=== PATIENT | male | born 1930 | race Caucasian/White ===

== ENCOUNTER 2016-10-18 11:01 | Emergency (ER) | payer OTHER ==
[2016-10-18 11:10] VITALS: TEMP 97.5
--- NOTE | 2016-10-18 11:14 | EDPHY ---
H & P Time Seen by Provider: 10/18/16 11:14 HPI/ROS: CHIEF COMPLAINT: Rapid heart rate and low blood pressure HISTORY OF PRESENT ILLNESS: Patient was in a follow-up appointment at his primary care provider's office when he was noted to have a blood pressure of 70/ 6 and heart rate of 162. Kristina Trujillo sent here for evaluation. Patient has no medical complaints. REVIEW OF SYSTEMS: Eye: no change in vision ENT: no sore throat Cardiac: no chest pain or syncope Pulmonary: no cough or SOB Abdomen: no vomiting, diarrhea, abdominal pain Musculoskeletal: no back pain Skin: no rash Neuro: no headache. He said he was a little bit dizzy earlier today but currently is not. No vertigo Constitutional: no fever : no urinary symptoms A comprehensive 10 point review of systems is otherwise negative aside from elements mentioned in the history of present illness. PAST MEDICAL HISTORY: Left total hip arthroplasty. Stroke in 1999, history of TIA. Rheumatoid arthritis, hypertension. Chronically hard of hearing Social history: Here with son. General Appearance: Alert and conversant, cooperative. Eyes: No scleral icterus. ENT, Mouth: Normal mucous membranes. Respiratory: Normal respiratory effort, breath sounds equal, lungs are clear to auscultation. Cardiovascular: Regular rate and rhythm. Tachycardic. Gastrointestinal: Abdomen is soft and non tender. Neurological: Alert and oriented x3. Normally conversant. Face symmetric, normal movement and sensation in all extremities. Skin: Warm and dry, no rashes. Musculoskeletal: No peripheral edema and no joint swelling. Psychiatric: Not agitated. Emergency Department course/MDM: Initial blood pressure 82 systolic, patient was emergently cardioverted with IV adenosine 6 mg for SVT with hypotension. Patient does not have ischemic symptoms. Has normal mental status. I-STAT creatinine noted at 1.7, he was 1.5 on 07/10/2016. 1149: Patient noted to be in recurrent SVT. His medications include atenolol. Plan for 5 mg IV metoprolol, patient converted spontaneously and now heart rate is 70. Hold off on adenosine unless he returns to SVT. 1231: Recurrent SVT at 1:50 a.m., additional 5 mg IV metoprolol. Heart rate at 1240 is back to 70, he will be given his usual daily oral atenolol at this time 50 mg. 1310: Heart rate stable at this time at 70. He gets his oral atenolol at this time. Plan to discharge with the son if he remains in sinus rhythm. 1355: Still in sinus rhythm, stable for discharge. He does not present with symptoms suggesting this was an ischemic event. Smoking Status: Former smoker Constitutional: Initial Vital Signs Temperature (C) 36.4 C 10/18/16 11:06 Heart Rate 160 H 10/18/16 11:06 Respiratory Rate 18 10/18/16 11:06 Blood Pressure 82/65 L 10/18/16 11:06 O2 Sat (%) 96 10/18/16 11:06 O2 Delivery Mode Room Air O2 (L/minute) 2 Allergies/Adverse Reactions: tetanus immune globulin Allergy (Verified 07/07/16 12:55) HEADACHES,UNABLE TO GET UP FOR DAYS Home Medications: Medication Instructions Recorded Atenolol [Tenormin 50 mg (*)] 50 mg PO DAILY 02/05/14 Calcium Carbonate/Vitamin D3 1 each PO BID 02/05/14 [Calcium 600-Vit D3 200 Tablet] Folic Acid [Folic Acid 1 MG (*)] 1 mg PO DAILY 02/05/14 Methotrexate Sodium [Trexall] 10 mg PO [place]@09 02/05/14 Multivitamins [Multivitamin (*)] 1 each PO DAILY 02/05/14 Omeprazole [Prilosec 20 mg] 20 mg PO DAILY 02/05/14 Fluticasone Nasal [Flonase Nasal 1 sprays [place] DAILY 07/07/16 [place]] Acetaminophen [Tylenol ES 500 mg 1,000 mg PO Q8 #0 tab 07/10/16 (*)] Calcium Carb W/Vit D [Calcium Carb 500 mg PO BID #0 tab 07/10/16 W/Vit D 500/200 (*)] Etanercept [Enbrel] 0 mg SQ Q5D 07/10/16 Hydrocodone/APAP 5/325 [[place] 1 - 2 tab PO Q3HRS PRN #0 tab 07/10/16 5/325 (*)] Lactulose [Cephulac 20 gm/30 ml 20 gm PO TID PRN #0 ml 07/10/16 oral soln (*)] Magnesium Hydroxide [Milk of 30 ml PO DAILY PRN #0 udcup 07/10/16 Magnesia (*)] Polyethylene Glycol 3350 [Miralax 17 gm PO DAILY #0 pkt 07/10/16 17 gm (*)] Sennosides/Docusate Sodium 1 - 2 tab PO BID #0 tab 07/10/16 [Senokot-S] Tapentadol HCl [Nucynta 50 MG (*)] 50 mg PO Q4HRS PRN #0 tab 07/10/16 oxyCODONE IR [Oxycodone Ir (*)] 5 mg PO Q3HRS PRN #0 tab 07/10/16 Enoxaparin [Lovenox 40 MG (*)] 40 mg SC DAILY 21 Days 07/11/16 Medical Decision Making - Diagnostics EKG Interpretation: 12-lead EKG interpreted by me; official reading is in trace master. My interpretation is SVT at 160 with repolarization abnormality. 2nd EKG at 11:28 a.m.:12-lead EKG interpreted by me; official reading is in trace master. My interpretation is sinus rhythm at rate of 71 with low frontal voltage. Differential Diagnosis: Differential diagnosis considered for narrow complex tachycardia including but not limited to various causes of sinus tachycardia, SVT, atrial flutter and atrial fibrillation. Critical Care Time: Critical care time spent by me, Dr. Houser, exclusively with the care of this patient was 45 minutes, exclusive of PA or IMPLEMENTATION ANALYST time and exclusive of separate procedures. The organ system at risk was cardiovascular with SVT and hypotension with blood pressure in the 80s, and I ordered IV adenosine and IV metoprolol, monitoring and testing of electrolytes, initial repeated evaluations ; to stabilize the patient and prevent worsening of the patient's condition. - Data Points Laboratory Results: 10/18/16 11:18 POC Hgb 15.6 gm/dL (14.5-17.3) POC Hct 46 % (42.8-50.6) POC Sodium 141 mEq/L (134-144) POC Potassium 3.9 mEq/L (3.3-5.0) POC Chloride 101 mEq/L (96-108) POC BUN 23 mg/dL (7-23) POC Creatinine 1.7 H mg/dL (0.8-1.5) POC Glucose 110 H mg/dL (70-100) Medications Given: Discontinued Medications Adenosine (Adenosine) 6 mg IVP EDNOW ONE Stop: 10/18/16 11:25 Last Admin: 10/18/16 11:24 Dose: 6 mg Adenosine (Adenosine) 6 mg IVP EDNOW ONE Stop: 10/18/16 11:50 Last Admin: 10/18/16 11:55 Dose: Not Given Atenolol (Tenormin) 50 mg PO EDNOW ONE Stop: 10/18/16 12:39 Last Admin: 10/18/16 13:08 Dose: 50 mg Metoprolol Tartrate (Lopressor Injection) 5 mg IVP EDNOW ONE Stop: 10/18/16 11:51 Last Admin: 10/18/16 11:54 Dose: 5 mg Metoprolol Tartrate (Lopressor Injection) 5 mg IVP EDNOW ONE Stop: 10/18/16 12:34 Last Admin: 10/18/16 12:37 Dose: 5 mg Point of Care Test Results: 10/18/16 11:18 POC Sodium 141 POC Potassium 3.9 POC Chloride 101 POC BUN 23 POC Creatinine 1.7 H POC Glucose 110 H Departure - Departure Disposition: Home, Routine, Self-Care Clinical Impression: Supraventricular tachycardia Condition: Good Instructions: Supraventricular Tachycardia (ED) Referrals: Evonne Trujillo PA [Primary Care Provider] - As per Instructions
--- NOTE | 2016-10-18 11:20 | CPEKG ---
Heart Rate: 159 RR Interval: 377 QRSD Interval: 74 QT Interval: 320 QTC Interval: 521 P [place]: 0 QRS [place]: 19 T Wave [place]: 73 EKG Severity - ABNORMAL ECG - EKG Impression: SUPRAVENTRICULAR TACHYCARDIA EKG Impression: LOW VOLTAGE IN FRONTAL LEADS EKG Impression: REPOLARIZATION ABNORMALITY, PROB RATE RELATED Electronically Signed By: Jh Houser 18-Oct-2016 13:13:58
[2016-10-18] MEDS ORDERED: ADENOSINE 6 MG/2 ML VIAL IVP ONE ×2 (11:24→11:49)
--- NOTE | 2016-10-18 11:30 | CPEKG ---
Heart Rate: 71 RR Interval: 845 P-R Interval: 208 QRSD Interval: 80 QT Interval: 396 QTC Interval: 431 P [place]: 67 QRS [place]: -15 T Wave [place]: 50 EKG Severity - OTHERWISE NORMAL ECG - EKG Impression: SINUS RHYTHM EKG Impression: BORDERLINE LEFT AXIS DEVIATION EKG Impression: LOW VOLTAGE IN FRONTAL LEADS Electronically Signed By: Jh Houser 18-Oct-2016 13:13:52
[2016-10-18] MEDS ORDERED: METOPROLOL TARTRATE 5 MG/5 ML INJ ONE (11:49)
[2016-10-18] MEDS ORDERED: METOPROLOL TARTRATE 5 MG/5 ML INJ IVP ONE ×2 (11:50→12:33)
[2016-10-18] MEDS ORDERED: ATENOLOL 50 MG TAB PO ONE (12:38)
[2016-10-18 14:05] VITALS: BP 129/61; PULSE 64; RESP 18; O2SAT 96
== END 2016-10-18 14:15 | disposition home or self-care (01) ==
DX: I47.1 Supraventricular tachycardia (principal); I10 Essential (primary) hypertension; Z86.73 Personal history of transient ischemic attack (TIA), and cerebral infarction without residual deficits; Z87.891 Personal history of nicotine dependence
CPT/HCPCS: 82947-QW; 96374

== ENCOUNTER → 2016-11-10 | Outpatient (CLI) | payer OTHER | LOC: BHFA 13:30 | PROVIDERS: ATTEND Internal Medicine Cardiovascular Disease | DX: I47.1 Supraventricular tachycardia (principal); I10 Essential (primary) hypertension; G45.9 Transient cerebral ischemic attack, unspecified ==

== ENCOUNTER → 2016-12-27 | Outpatient (CLI) | payer OTHER | LOC: FIMAGING 11:14 | PROVIDERS: ATTEND Physician Assistant Medical | DX: N40.0 Benign prostatic hyperplasia without lower urinary tract symptoms (principal); M43.16 Spondylolisthesis, lumbar region ==

== ENCOUNTER → 2017-01-19 | Outpatient (CLI) | payer OTHER ==
[~2017-01-19] MED LIST: GADOBUTROL 10 ML VIAL IVP ONE
== END ==
LOC: FIMAGING 08:42
PROVIDERS: ATTEND Psychiatry & Neurology Neurology
DX: H53.9 Unspecified visual disturbance (principal); G45.9 Transient cerebral ischemic attack, unspecified; R47.01 Aphasia; R20.0 Anesthesia of skin
CPT/HCPCS: 70544; 70549; 70551; A9585

== ENCOUNTER 2017-04-19 13:26 | Emergency (ER) | payer OTHER ==
--- NOTE | 2017-04-19 13:34 | EDPHY ---
H & P Smoking Status: Former smoker Time Seen by Provider: 04/19/17 13:30 HPI/ROS: HPI Speech disturbance, right-sided facial droop, stroke alert. 87-year-old male by ambulance from [facility]. Patient was talking to another resident at [facility], witnessed sudden-onset expressive a aphasia, dysphagia and right-sided facial droop. Onset 1:00 p.m.. EMS reports on arrival facial droop had resolved. EMS reports and route to hospital speech disturbance is improving. ROS: Constitutional: No fever, no chills. No weakness. Eyes: No discharge. No changes in vision. ENT: No sore throat. No nasal congestion or rhinorrhea. Respiratory: No cough. No shortness of breath. Cardiac: No chest pain, no palpitations. Gastrointestinal: No abdominal pain, no vomiting, no diarrhea. Genitourinary: No hematuria. No dysuria or increased frequency with urination. Musculoskeletal: No back pain. No neck pain. No myalgias or arthralgias. Skin: No rashes. Neurological: No headache. As above. Past medical history: CVA. Social history: Resident [facility]. Here by himself currently. Physical Exam: General Appearance: Alert, no distress. This patient is responding to questions appropriately and in full sentences. This patient appears well- hydrated and well-nourished. Eyes: Pupils equal and round and reactive no pallor or injection. No lid edema , erythema or injection. ENT, Mouth: Mucous membranes are moist. The pharyngeal tissues are unremarkable. No edema or swelling. No asymmetry suggestive of abscess. No erythema or exudates. No tongue lacerations or abrasions. Respiratory: There are no retractions, lungs are clear to auscultation with good air movement bilaterally. Cardiovascular: Regular rate and rhythm. No murmur. Gastrointestinal: Abdomen is soft and nontender, no masses, bowel sounds normal. No focal tenderness at McBurney's point. No Barros sign. Neurological: Motor sensory function is grossly intact. Cranial nerves are normal. Skin: Warm and dry, no rashes. Musculoskeletal: Neck is supple and nontender. Extremities are symmetrical. All joints range without pain or impingement. Psychiatric: No agitation. No depression. Database: EKG: EKG time is 1:56 p.m.; EKG shows a narrow complex normal sinus rhythm with a ventricular rate of 62. Low voltage frontal leads. Borderline left axis deviation. The [place], QRS, QT intervals are within normal limits. There are no ST -T wave changes indicative of ischemic or injury pattern. No evidence of right heart strain. Interpreted by me. Imaging: CT brain without contrast: No acute pathology. Results were discussed with staff radiologist. MRI of brain without contrast: Procedures: Emergency department course: Vital signs reviewed. Blood sugar per EMS is 110. Patient has shown significant improvement in neurologic function since onset of symptoms at 1:00 p.m.. Facial droop has resolved. Speech disturbance is resolving. Patient downgraded from stroke alert. Likely TIA. I evaluated the patient at the door. Brief neurologic Assessment was done and the patient was sent for noncontrast CT scan of his head. Medical records reviewed. MRA of neck 01/19/2017, negative for dissection or significant stenosis. 1:55 p.m., patient re-evaluated. No change in neurologic status. Patient communicating appropriately. No expressive or receptive aphasia. Son at the bedside. He verifies the patient is currently at his baseline neurologic function. 2:45 p.m., patient awaiting MRI of the brain. Blood work reviewed %period% creatinine 1.7 is patient's baseline. Repeat neurologic Assessment nonfocal. Discussed results of CT and blood work with the patient's son. The patient's son tells me that the patient has had multiple incident such as today in the past. Plan will be to send the patient home if MRI unremarkable. The patient and son endorse this plan. 3:00 p.m., care turned over to Dr. Isha Bowles. MRI pending. Differential Diagnosis: The differential diagnosis on this patient includes but is not limited to CVA, TIA, hypoglycemia. This represents a partial list of diagnoses considered. These considerations are based on history, physical exam, past history, reassessment and diagnostic testing. (Mady Villarreal) Constitutional: Initial Vital Signs Temperature (C) 36.7 C 04/19/17 13:50 Heart Rate 66 04/19/17 13:50 Respiratory Rate 16 04/19/17 13:50 Blood Pressure 143/71 H 04/19/17 13:50 O2 Sat (%) 99 04/19/17 13:50 O2 Delivery Mode Room Air Allergies/Adverse Reactions: tetanus immune globulin Allergy (Verified 07/07/16 12:55) HEADACHES,UNABLE TO GET UP FOR DAYS Home Medications: Medication Instructions Recorded Atenolol [Tenormin 50 mg (*)] 50 mg PO DAILY 02/05/14 Calcium Carbonate/Vitamin D3 1 each PO BID 02/05/14 [Calcium 600-Vit D3 200 Tablet] Folic Acid [Folic Acid 1 MG (*)] 1 mg PO DAILY 02/05/14 Methotrexate Sodium [Trexall] 10 mg PO [place]AMORRO@09 02/05/14 Multivitamins [Multivitamin (*)] 1 each PO DAILY 02/05/14 Omeprazole [Prilosec 20 mg] 20 mg PO DAILY 02/05/14 Fluticasone Nasal [Flonase Nasal 1 sprays EACHNARE DAILY 07/07/16 [place]] Acetaminophen [Tylenol ES 500 mg 1,000 mg PO Q8 #0 tab 07/10/16 (*)] Calcium Carb W/Vit D [Calcium Carb 500 mg PO BID #0 tab 07/10/16 W/Vit D 500/200 (*)] Etanercept [Enbrel] 0 mg SQ Q5D 07/10/16 Hydrocodone/APAP 5/325 [[place] 1 - 2 tab PO Q3HRS PRN #0 tab 07/10/16 5/325 (*)] Lactulose [Cephulac 20 gm/30 ml 20 gm PO TID PRN #0 ml 07/10/16 oral soln (*)] Magnesium Hydroxide [Milk of 30 ml PO DAILY PRN #0 udcup 07/10/16 Magnesia (*)] Polyethylene Glycol 3350 [Miralax 17 gm PO DAILY #0 pkt 07/10/16 17 gm (*)] Sennosides/Docusate Sodium 1 - 2 tab PO BID #0 tab 07/10/16 [Senokot-S] Tapentadol HCl [Nucynta 50 MG (*)] 50 mg PO Q4HRS PRN #0 tab 07/10/16 oxyCODONE IR [Oxycodone Ir (*)] 5 mg PO Q3HRS PRN #0 tab 07/10/16 Enoxaparin [Lovenox 40 MG (*)] 40 mg SC DAILY 21 Days 07/11/16 Medical Decision Making Other Provider: I assumed care of this patient from Dr. Villarreal at 3:00 p.m.. MRI was pending at that time. The MRI was reported to me as being without acute findings. Atrophy and white matter changes are noted. Please see Dr. Lemon's final report. I discussed these findings with both the patient and his son. They are both comfortable with the patient returning home. Reportedly he has these episodes, presumed to be TIAs, frequently, at least once monthly. There was nothing different about today's episode. He takes a daily aspirin. He is not interested in further intervention or treatment. All of his symptoms subsided shortly after the episode began and have not returned. He is discharged home. (Isha Bowles) - Data Points Laboratory Results: Laboratory Results 04/19/17 13:45 04/19/17 13:45 Medications Given: Discontinued Medications Sodium Chloride (Ns) 500 mls @ 0 mls/hr IV ONCE ONE; Wide Open PRN Reason: Protocol Stop: 04/19/17 13:49 Last Admin: 04/19/17 14:09 Dose: 500 mls Departure - Departure Disposition: Home, Routine, Self-Care Clinical Impression: Transient cerebral ischemia Qualifiers: Transient cerebral ischemia type: other Qualified Code(s): G45.8 - Other transient cerebral ischemic attacks and related syndromes Condition: Good Instructions: Transient Ischemic Attack (ED) Additional Instructions: Read and follow provided instructions. Follow-up with your primary care physician or neurologist tomorrow or Sunday for re-evaluation. Take medication as prescribed. Return to the emergency department for return of symptoms or other serious concerns. Referrals: Evonne Trujillo PA [Physician Lead Case Manager] - As per Instructions
[2017-04-19] MEDS ORDERED: NS 500 ML IV ONE (13:48)
[2017-04-19 13:54] VITALS: RESP 16
[2017-04-19 13:54] LABS: % IMMATURE GRANULYOCYTES 0.5 % (0.0-1.1); ABSOLUTE IMMATURE GRANULOCYTES 0.03 10^3/uL (0.00-0.10); ADD DIFF? NO; ADD MORPH? NO; ADD SCAN? YES; ATYPICAL LYMPHOCYTE FLAG 0 (0-99); FRAGMENT RBC FLAG 0 (0-99); HEMATOCRIT 37.9 % (40.0-51.0); HEMOGLOBIN 12.6 g/dL (13.7-17.5); LEFT SHIFT FLG 0 (0-99); LIPEMIA HEMOLYSIS FLAG 80 (0-99); MEAN CELL HEMOGLOBIN 31.7 pg (27.9-34.1); MEAN CELL HEMOGLOBIN CONCENTR. 33.2 g/dL (32.4-36.7); MEAN CELL VOLUME 95.5 fL (81.5-99.8); MEAN PLATELET VOLUME 9.7 fL (8.7-11.7); PLATELET CLUMPS FLAG 0 (0-99); PLATELET COUNT 179 10^3/uL (150-400); RED BLOOD CELL COUNT 3.97 10^6/uL (4.40-6.38); RED CELL DISTRIBUTION WIDTH 15.6 % (11.5-15.2)
--- NOTE | 2017-04-19 14:00 | CPEKG ---
Heart Rate: 62 RR Interval: 968 P-R Interval: 204 QRSD Interval: 88 QT Interval: 424 QTC Interval: 431 P [place]: 63 QRS [place]: -22 T Wave [place]: 53 EKG Severity - OTHERWISE NORMAL ECG - EKG Impression: SINUS RHYTHM EKG Impression: BORDERLINE LEFT AXIS DEVIATION EKG Impression: LOW VOLTAGE IN FRONTAL LEADS Electronically Signed By: Mady Villarreal 19-Apr-2017 15:10:16
[2017-04-19 14:13] LABS: APTT 30.2 SEC (23.0-38.0); INR 1.11 (0.83-1.16); PROTIME(PATIENT) 14.2 SEC (12.0-15.0)
[2017-04-19 14:15] LABS: CALCIUM 9.6 mg/dL (8.5-10.4); CARBON DIOXIDE 23 mEq/l (22-31); CHLORIDE 107 mEq/L (97-110); CREATININE 1.7 mg/dL (0.7-1.3); GLOMERULAR FILTRATION RATE 38; GLUCOSE 100 mg/dL (70-100); SODIUM 142 mEq/L (134-144)
[2017-04-19 14:23] LABS: SCAN POSITIVE
[2017-04-19 14:27] LABS: ANION GAP 12 mEq/L (8-16); POTASSIUM 4.3 mEq/L (3.5-5.2)
[2017-04-19 14:35] LABS: PLATELET ESTIMATE ADEQUATE (ADEQ)
[2017-04-19 16:17] VITALS: BP 124/62; PULSE 70; TEMP 98.2; O2SAT 100
== END 2017-04-19 16:26 | disposition home or self-care (01) ==
LOC: EDUNIT#
DX: G45.8 Other transient cerebral ischemic attacks and related syndromes (principal); E86.9 Volume depletion, unspecified
CPT/HCPCS: 82947-QW

== ENCOUNTER 2019-02-15 14:44 | Inpatient (IN) | payer OTHER ==
--- NOTE | 2019-02-15 14:51 | EDPHY ---
H & P Time Seen by Provider: 02/15/19 14:50 HPI/ROS: HPI Stroke alert. Speech difficulty. Altered mental status. 89-year-old male by ambulance from [facility]. Last seen by a staff member 12 noon at [facility] and described as normal. Responding to questions appropriately. Alert and oriented. Sudden-onset expressive and receptive aphasia at 12 noon. Presents to the emergency department as a stroke alert. Prior history of TIA. Not on anticoagulant and antiplatelet medications. Further history not obtainable at this time. ROS: Unable to obtain secondary to above. Past medical history: Chronic kidney disease, constipation, hypertension, TIA, rheumatoid arthritis on immune inhibitors. Social history: His son is on his way to the emergency department currently. He presents from [facility]. Nonsmoker. No alcohol. Physical Exam: General Appearance: Alert, making intermittent nonsensical sounds. Not responding to questioning. Dysarthric very limited speech. This patient appears well-hydrated and well-nourished. Head: Normocephalic atraumatic. Eyes: Pupils equal and round no pallor or injection. No lid edema, erythema or injection. ENT, Mouth: Mucous membranes are moist. The pharyngeal tissues are unremarkable. No edema or swelling. No asymmetry suggestive of abscess. No erythema or exudates. No tongue lacerations or abrasions. No tongue lacerations or abrasions. Respiratory: There are no retractions, lungs are clear to auscultation with good air movement bilaterally. Cardiovascular: Regular rate and rhythm. No murmur. Gastrointestinal: Abdomen is soft and without apparent tenderness, no masses, bowel sounds normal. No obvious focal tenderness at McBurney's point. No Barros sign. Neurological: Motor sensory function is grossly intact. Cranial nerves are grossly normal. Expressive and receptive aphasia. With lab voice will focus but not respond appropriately. Skin: Warm and dry, no rashes. Musculoskeletal: Neck is supple and without obvious tenderness. Extremities are symmetrical. All joints range without apparent pain or impingement. No apparent tenderness on palpation of the long bones in the bilateral upper and bilateral lower extremities. Psychiatric: Agitation. Database: EKG: EKG time is 3:29 p.m.; EKG shows a narrow complex normal sinus rhythm with a ventricular rate of 86. Low voltage noted in the extremity leads. The IN, QRS, QT intervals are within normal limits. There are no ST-T wave changes indicative of ischemic or injury pattern. No evidence of right heart strain. Interpreted by me. Imaging: CT head without contrast: Age-related changes only. Otherwise negative. Results were discussed with staff radiologist Dr. Tevin Bennett. MRI brain without contrast: Images in adequate for interpretation. Discussed with staff radiologist Dr. Byron Harper. Carotid artery Doppler ultrasounds: No hemodynamically significant stenosis of the bilateral carotid arteries. Vertebral arteries unremarkable. Results discussed with staff radiologist Dr. Byron Harper. Procedures: Emergency department course: Initial evaluation was performed in the hallway immediately on arrival by myself. Patient was then cleared for noncontrast CT head and sent to the CT suite. Patient returned from CT at approximately 2:55 p.m.. No change in neurologic status as noted above. [facility] paged. [facility] [facility]ist, Dr. Mason Hernandez assessing the patient at 3:00 p.m.. 3:10 p.m., the patient's son is currently in the room. He states that he was with his father before 11:00 a.m. this morning and his father states he was acting as he is currently. He reports that he thinks his father may have fallen but when he found him in his room he was standing with his pants down, making nonsensical sounds and not responding to questions. The patient is currently being evaluated by [facility]. Patient seems to be intermittently trying to gag versus sneeze. He is handling his secretions. Upper airway sounds are clear. He will be given 12.5 mg of IV Phenergan and 4 mg of IV Zofran. 3:20 p.m., [facility] has finished their assessment of this patient. The patient is not a tPA candidate secondary to time of onset of symptoms greater than 4 hr. [facility] feels that this may not be a stroke. Neurologist does however recommend getting a CT angiogram of the head neck. This was ordered. We will consult with them if there are any significant abnormalities on this study. 3:25 p.m., spoke with the on-call hospitalist, Dr. Patience Means. Case discussed in detail with her. She tentatively accepts this patient for admission to the hospitalist service. 3:30 p.m., secondary to continued agitation and need for more imaging as noted above the patient was given 2 mg of IV Ativan. 3:40 p.m., patient's creatinine is 1.6. Discussed this with staff radiologist Dr. Tevin Bennett. CT angio of head neck canceled. Will obtain noncontrast MRI of brain and Doppler ultrasounds of carotids. 4:35 p.m., the patient did not tolerate MRI. He was given 2 doses of Haldol of 5 mg of piece and still became very agitated when the machine started to make noise. He also received a total of 2 mg of IV Ativan as noted above. He was return to the emergency department. His repeat neurologic Assessment is unchanged other than him being appropriately sedated at this point. 4:45 p.m., spoke with on-call neurologist Dr. Byron Russell. The case was discussed in detail with him. I did discuss obtaining an LP. However, this procedure is going to be very difficult given the patient's level of agitation. Likely would require deep sedation and possible intubation. We both feel that the patient's presentation is more consistent with a thrombotic CVA. Because of this and the risks associated with doing the LP procedure as outlined , we will not perform this procedure in the emergency department. We did obtain blood cultures. The patient has remained afebrile while in the emergency department. He does not have a leukocytosis. However, the patient is on rituximab and methotrexate and therefore is likely immune compromised. I discussed my conversation with Dr. Russell with the admitting hospitalist Dr. Patience Means. We will initiate treatment for possible meningitis in the emergency department. If reassessment of the patient on the floor indicates a clear CVA etiology of his presentation this treatment can be stopped. The patient was given initial doses of antibiotics and IV Decadron in the emergency department. His remaining emergency department course under my care has been uneventful. He was admitted to the hospitalist service, step-down unit in stable condition. Differential Diagnosis: The differential diagnosis on this patient includes but is not limited to acute thrombotic CVA. Toxic metabolic problem, hemorrhagic CVA unlikely. This represents a partial list of diagnoses considered. These considerations are based on history, physical exam, past history, reassessment and diagnostic testing. Smoking Status: Former smoker Constitutional: Initial Vital Signs Temperature (C) 36.3 C 02/15/19 14:44 Heart Rate 87 02/15/19 14:44 Respiratory Rate 20 02/15/19 14:44 Blood Pressure 174/92 H 02/15/19 14:44 O2 Sat (%) 99 02/15/19 14:44 O2 Delivery Mode Nasal Cannula O2 (L/minute) 2 Allergies/Adverse Reactions: tetanus immune globulin Allergy (Verified 02/15/19 15:32) HEADACHES,UNABLE TO GET UP FOR DAYS Home Medications: Medication Instructions Recorded Atenolol [Tenormin 50 mg (*)] 50 mg PO DAILY 02/05/14 Folic Acid [Folic Acid 1 MG (*)] 1 mg PO DAILY 02/05/14 Methotrexate Sodium [Trexall] 10 mg PO CHAMORRO@09 02/05/14 Multivitamins [Multivitamin (*)] 1 each PO DAILY 02/05/14 Omeprazole [Prilosec 20 mg] 20 mg PO DAILY 02/05/14 Fluticasone Nasal [Flonase Nasal 1 sprays EACHNARE DAILY PRN 07/07/16 [place]] Calcium Carb W/Vit D [Calcium Carb 500 mg PO BID #0 tab 07/10/16 W/Vit D 500/200 (*)] Acetaminophen [Tylenol ES 500 mg 1,000 mg PO Q8 PRN 02/15/19 (*)] Medical Decision Making Critical Care Time: I spent a total of 42 minutes of critical care time in obtaining history, performing a physical exam, bedside monitoring of interventions, collecting and interpreting tests and discussion with consultants but not including time spent performing procedures. - Data Points Laboratory Results: Laboratory Results 02/15/19 14:50 02/15/19 14:50 Medications Given: Aspirin (Aspirin Rectal) 300 mg IN DAILY FIFI Stop: 08/14/19 19:27 Last Admin: 02/16/19 08:42 Dose: 300 mg Enoxaparin Sodium (Lovenox) 30 mg SC DAILY FIFI Stop: 08/15/19 08:59 Last Admin: 02/16/19 11:59 Dose: Not Given Sodium Chloride (Ns) 1,000 mls @ 75 mls/hr IV CONT FIFI Stop: 08/14/19 18:14 Last Admin: 02/16/19 08:43 Dose: 1,000 mls Discontinued Medications Dexamethasone (Decadron Injection) 10 mg IVP EDNOW ONE Stop: 02/15/19 17:06 Last Admin: 02/15/19 17:16 Dose: 10 mg Haloperidol Lactate (Haldol Injection) 10 mg IVP EDNOW ONE Stop: 02/15/19 16:16 Last Admin: 02/15/19 17:11 Dose: 10 mg Haloperidol Lactate (Haldol Injection) 1 - 2 mg IVP Q6HRS PRN PRN Reason: Agitation Stop: 08/14/19 18:11 Last Admin: 02/16/19 06:48 Dose: 2 mg Ampicillin Sodium 2 gm/ Sodium (Chloride) 100 mls @ 200 mls/hr IV EDNOW ONE PRN Reason: Protocol Stop: 02/15/19 17:35 Last Admin: 02/15/19 18:28 Dose: 100 mls Ceftriaxone Sodium 2 gm/ (Sodium Chloride) 50 mls @ 100 mls/hr IV EDNOW ONE PRN Reason: Protocol Stop: 02/15/19 17:36 Last Admin: 02/15/19 19:48 Dose: 50 mls Vancomycin HCl 1.5 gm/ (Dextrose) 250 mls @ 166.67 mls/hr IV EDNOW ONE PRN Reason: Protocol Stop: 02/15/19 18:36 Last Admin: 02/15/19 20:27 Dose: Not Given Vancomycin HCl 1.5 gm/ Sodium (Chloride) 250 mls @ 166.67 mls/hr IV EDNOW ONE PRN Reason: Protocol Stop: 02/15/19 19:29 Last Admin: 02/15/19 20:26 Dose: 250 mls Ampicillin Sodium 2 gm/ Sodium (Chloride) 100 mls @ 200 mls/hr IV Q6HRS FIFI PRN Reason: Protocol Stop: 03/18/19 00:00 Last Admin: 02/16/19 13:37 Dose: Not Given Ceftriaxone Sodium 2 gm/ (Sodium Chloride) 50 mls @ 100 mls/hr IV Q12 FIFI PRN Reason: Protocol Stop: 03/18/19 08:59 Last Admin: 02/16/19 08:42 Dose: 50 mls Lorazepam (Ativan Injection) 2 mg IVP EDNOW ONE Stop: 02/15/19 15:26 Last Admin: 02/15/19 15:30 Dose: 2 mg Lorazepam (Ativan Injection) 0.5 - 1 mg IVP Q8HRS PRN PRN Reason: Anxiety, Unable to Take PO Stop: 08/14/19 18:02 Last Admin: 02/16/19 03:59 Dose: 1 mg Ondansetron HCl (Zofran) 4 mg IVP EDNOW ONE Stop: 02/15/19 15:26 Last Admin: 02/15/19 15:30 Dose: 4 mg Promethazine HCl (Phenergan) 12.5 mg IVP ONCE ONE Stop: 02/15/19 15:26 Last Admin: 02/15/19 15:30 Dose: 12.5 mg Point of Care Test Results: Chemistry 02/15/19 14:53 POC Sodium 139 mEq/L mEq/L (135-145) POC Potassium 4.2 mEq/L mEq/L (3.3-5.0) POC Chloride 104 mEq/L mEq/L (97-110) POC Total CO2 22 mEq/L mEq/L (22-31) POC BUN 19 mg/dL mg/dL (7-23) POC Creatinine 1.6 mg/dL H mg/dL (0.7-1.3) POC Glucose 110 mg/dL H mg/dL (70-100) ISTAT H&H 02/15/19 14:53 POC Hgb 13.9 gm/dL gm/dL (13.7-17.5) POC Hct 41 % % (40-51) Departure - Departure Disposition: [facility] Inpatient Acute Clinical Impression: Combined receptive and expressive aphasia, Altered mental status, Chronic renal insufficiency
[2019-02-15 15:00] LABS: PLATELET COUNT 195 10^3/uL (150-400)
[2019-02-15 15:08] LABS: INR 0.96 (0.83-1.16); PROTIME(PATIENT) 12.4 SEC (12.0-15.0)
[2019-02-15] MEDS ORDERED: ONDANSETRON 4 MG/2 ML VIAL ONE (15:10)
[2019-02-15] MEDS ORDERED: PROMETHAZINE HCL 25 MG/ML INJ ONE (15:10)
[2019-02-15] MEDS ORDERED: LORazepam 2 MG/ML INJ ONE (15:15)
[2019-02-15] MEDS ORDERED: PROMETHAZINE HCL 25 MG/ML INJ IVP ONE (15:25)
[2019-02-15] MEDS ORDERED: LORazepam 2 MG/ML INJ IVP ONE (15:25)
[2019-02-15] MEDS ORDERED: ONDANSETRON 4 MG/2 ML VIAL IVP ONE (15:25)
[2019-02-15] MEDS ORDERED: IOPAMIDOL (ISOVUE 370) 100 ML BTL IV ONE (15:27)
[2019-02-15] MEDS ORDERED: HALOPERIDOL LACT 5 MG/ML INJ ONE ×2 (15:51→16:25)
[2019-02-15] MEDS ORDERED: HALOPERIDOL LACT 5 MG/ML INJ IVP ONE (16:15)
[2019-02-15] MEDS ORDERED: DEXAMETHASONE 10 MG/ML VIAL IVP ONE (17:05)
[2019-02-15] MEDS ORDERED: AMPICILLIN SODIUM 2 GM in NS 100 ML IV ONE (17:06)
[2019-02-15] MEDS ORDERED: VANCOMYCIN 1.5 GM in D5W 250 ML IV ONE (17:07)
[2019-02-15] MEDS ORDERED: ONDANSETRON 4 MG/2 ML VIAL IVP PRN (18:03)
[2019-02-15] MEDS ORDERED: ACETAMINOPHEN 650 MG SUPP PR PRN (18:03)
[2019-02-15] MEDS ORDERED: HYDROmorphONE/DILAUDID 1 MG/ML INJ IVP PRN (18:03)
[2019-02-15] MEDS ORDERED: ACETAMINOPHEN 325 MG TAB PO PRN (18:03)
[2019-02-15] MEDS ORDERED: PROMETHAZINE HCL 25 MG/ML INJ IVP PRN (18:03)
[2019-02-15] MEDS ORDERED: ONDANSETRON DISINTEGRATING 4 MG TAB PO PRN (18:03)
[2019-02-15] MEDS ORDERED: HALOPERIDOL LACT 5 MG/ML INJ IVP PRN (18:12)
[2019-02-15] MEDS: NS 1,000 ML IV SCH (18:28)
--- NOTE | 2019-02-15 18:29 | CPEKG ---
Test Reason : OPEN Blood Pressure : / mmHG Vent. Rate : 086 BPM Atrial Rate : 086 BPM P-R Int : 215 ms QRS Dur : 086 ms QT Int : 406 ms P-R-T Axes : 061 -13 058 degrees QTc Int : 486 ms Sinus rhythm Borderline prolonged ID interval Low voltage, extremity leads Borderline prolonged QT interval Confirmed by Mady Villarreal ([id number]) on 02/15/2019 6:28:43 PM Referred By: Mady Villarreal Confirmed By:Mady Villarreal
--- NOTE | 2019-02-15 19:14 | PDGENHP ---
History and Physical - Chief Complaint sudden onset confusion/aphasia - History of Present Illness Patient is an 89 yo M with PMH of RA, dementia, TIA currently residing at [facility] and brought in after being noted to be confused with associated aphasia at around noon today. Son stated that when he saw him earlier this morning, around 11, he was also confused however so last known normal unclear. At the time of my evaluation patient is spontaneously moving all 4 extremities and appears to be equally strong throughout but is unable to follow commands and is unable to answer questions, he does not open his eyes for me. He is intermittently groaning and slightly combative with staff. History is obtained entirely by chart review and discussion with ER doctor. History Information - Allergies/Home Medication List Allergies/Adverse Reactions: tetanus immune globulin Allergy (Verified 02/15/19 15:32) HEADACHES,UNABLE TO GET UP FOR DAYS Home Medications: Atenolol [Tenormin 50 mg (*)] 50 mg PO DAILY 02/05/14 [Last Taken 07/06/16] Calcium Carbonate/Vitamin D3 [Calcium 600-Vit D3 200 Tablet] 1 each PO BID 02/05 [Last Taken 07/06/16] Folic Acid [Folic Acid 1 MG (*)] 1 mg PO DAILY 02/05/14 [Last Taken 07/06/16] Methotrexate Sodium [Trexall] 10 mg PO CHAMORRO@09 02/05/14 [Last Taken 07/02/16] Multivitamins [Multivitamin (*)] 1 each PO DAILY 02/05/14 [Last Taken 12/16/14] Omeprazole [Prilosec 20 mg] 20 mg PO DAILY 02/05/14 [Last Taken 07/06/16] Fluticasone Nasal [Flonase Nasal [place]] 1 sprays EACHNARE DAILY 07/07/16 [Last Taken Unknown] riTUXimab 02/15/19 [Last Taken Unknown] I have personally reviewed and updated: family history, medical history, social history, surgical history - Past Medical History arthritis (rheumatoid), cancer (NHL), COPD, dementia, hypertension, hyperlipidemia, TIA Additional medical history: interstitial lung disease. encephalopathy in the past in setting of infection - Surgical History Reports: hernia repair Additional surgical history: ankle surgery. cataract. hip - Family History Positive for: non-pertinent - Social History Smoking Status: Former smoker Alcohol Use: Rarely Drug Use: None Additional social history: lives in [facility], has a son in town involved in his care Review of Systems Review of Systems: unobtainable due to patients mental status Physical Exam Physical Exam: Temp Pulse Resp BP Pulse Ox 37.6 C 91 16 180/80 H 99 02/15/19 18:06 02/15/19 18:06 02/15/19 18:06 02/15/19 18:06 02/15/19 18:06 O2 (L/minute) 2 Constitutional: appears nourished, uncomfortable Eyes: PERRL Ears, Nose, Mouth, Throat: poor dentition, dry mucous membranes Cardiovascular: regular rate and rhythym, no murmur, rub, or gallop, No edema Respiratory: no respiratory distress, no rales or rhonchi Gastrointestinal: normoactive bowel sounds, No guarding, No rebound Genitourinary: no bladder tenderness Skin: warm, normal color Musculoskeletal: full muscle strength Neurologic: other (not responding to questions or following commands, moves all 4), No AAOx3 Psychiatric: encephalopathic, agitated Lab Data & Imaging Review 02/15/19 14:50 02/15/19 14:50 WBC 5.61 10^3/uL (3.80-9.50) 02/15/19 14:50 RBC 3.87 10^6/uL (4.40-6.38) L 02/15/19 14:50 Hgb 13.3 g/dL (13.7-17.5) L 02/15/19 14:50 POC Hgb 13.9 gm/dL (13.7-17.5) 02/15/19 14:53 Hct 38.5 % (40.0-51.0) L 02/15/19 14:50 POC Hct 41 % (40-51) 02/15/19 14:53 MCV 99.5 fL (81.5-99.8) 02/15/19 14:50 MCH 34.4 pg (27.9-34.1) H 02/15/19 14:50 MCHC 34.5 g/dL (32.4-36.7) 02/15/19 14:50 RDW 15.8 % (11.5-15.2) H 02/15/19 14:50 Plt Count 195 10^3/uL (150-400) 02/15/19 14:50 MPV 9.4 fL (8.7-11.7) 02/15/19 14:50 Neut % (Auto) Not Reported 02/15/19 14:50 Lymph % (Auto) Not Reported 02/15/19 14:50 Bell % (Auto) Not Reported 02/15/19 14:50 Eos % (Auto) Not Reported 02/15/19 14:50 Baso % (Auto) Not Reported 02/15/19 14:50 Nucleat RBC Rel Count Not Reported 02/15/19 14:50 Absolute Neuts (auto) Not Reported 02/15/19 14:50 Absolute Lymphs (auto) Not Reported 02/15/19 14:50 Absolute Monos (auto) Not Reported 02/15/19 14:50 Absolute Eos (auto) Not Reported 02/15/19 14:50 Absolute Basos (auto) Not Reported 02/15/19 14:50 Absolute Nucleated RBC Not Reported 02/15/19 14:50 Immature Gran % Not Reported 02/15/19 14:50 Seg Neutrophils % 57.2 % 02/15/19 14:50 Band Neutrophils % 5.1 % 02/15/19 14:50 Lymphocytes % 15.3 % 02/15/19 14:50 Monocytes % 15.3 % 02/15/19 14:50 Eosinophils % 4.1 % 02/15/19 14:50 Basophils % 1.0 % 02/15/19 14:50 Metamyelocytes % 2.0 % 02/15/19 14:50 Myelocytes % 0.0 % 02/15/19 14:50 Promyelocytes % 0.0 % 02/15/19 14:50 Blast Cells % 0.0 % 02/15/19 14:50 Immature Gran # Not Reported 02/15/19 14:50 Absolute Seg Neuts 3.21 10^3/uL (1.70-6.50) 02/15/19 14:50 Absolute Band Neuts 0.29 10^3/uL (0.00-0.70) 02/15/19 14:50 Absolute Lymphocytes 0.86 10^3/uL (1.00-3.00) L 02/15/19 14:50 Absolute Monocytes 0.86 10^3/uL (0.30-0.80) H 02/15/19 14:50 Absolute Eosinophils 0.23 10^3/uL (0.03-0.40) 02/15/19 14:50 Absolute Basophils 0.06 10^3/uL (0.02-0.10) 02/15/19 14:50 Absolute Metamyelocyte 0.11 10^3/mL (0.00-0.00) H 02/15/19 14:50 Absolute Myelocytes 0.00 10^3/mL (0.00-0.00) 02/15/19 14:50 Absolute Promyelocytes 0.00 10^3/uL (0.00-0.00) 02/15/19 14:50 Absolute Plasma Cells 0.00 10^3/uL (0.00-0.00) 02/15/19 14:50 Nucleated RBCs 0 /100 WBC (0-0) 02/15/19 14:50 Absolute Blast Cells 0.00 10^3/uL (0.00-0.00) 02/15/19 14:50 Plasma Cells % 0.0 % 02/15/19 14:50 Platelet Estimate ADEQUATE (ADEQ) 02/15/19 14:50 Microcytic Cells 1+ H 02/15/19 14:50 Oval Macrocytes 1+ H 02/15/19 14:50 PT 12.4 SEC (12.0-15.0) 02/15/19 14:50 INR 0.96 (0.83-1.16) 02/15/19 14:50 POC Sodium 139 mEq/L (135-145) 02/15/19 14:53 Sodium 136 mEq/L (135-145) 02/15/19 14:50 POC Potassium 4.2 mEq/L (3.3-5.0) 02/15/19 14:53 Potassium 4.4 mEq/L (3.5-5.2) 02/15/19 14:50 POC Chloride 104 mEq/L (97-110) 02/15/19 14:53 Chloride 102 mEq/L (97-110) 02/15/19 14:50 Carbon Dioxide 22 mEq/l (22-31) 02/15/19 14:50 POC Total CO2 22 mEq/L (22-31) 02/15/19 14:53 Anion Gap 12 mEq/L (6-14) 02/15/19 14:50 POC BUN 19 mg/dL (7-23) 02/15/19 14:53 BUN 20 mg/dL (7-23) 02/15/19 14:50 Creatinine 1.5 mg/dL (0.7-1.3) H 02/15/19 14:50 POC Creatinine 1.6 mg/dL (0.7-1.3) H 02/15/19 14:53 Estimated GFR 44 02/15/19 14:50 Glucose 106 mg/dL (70-100) H 02/15/19 14:50 POC Glucose 110 mg/dL (70-100) H 02/15/19 14:53 Calcium 9.8 mg/dL (8.5-10.4) 02/15/19 14:50 POC Troponin I 0.01 ng/mL (0.00-0.08) 02/15/19 16:20 Visualized and Interpreted imaging results: Yes Interpretation: head CT: atrophy, white matter changes, nothing acute. carotid US: no significant stenosis Visualized and Interpreted EKG results: Yes EKG Interpretation: Positive for: normal sinsus rhythm Assessment & Plan Assessment: Altered mental status (Acute) CVA (cerebral vascular accident) (Acute) 89 yo M with PMH of RA and chronic immune suppression as well as prior TIA and mild dementia presenting with encephalopathy and aphasia # metabolic encephalopathy: patient brought in as a stroke alert with new onset expressive and receptive aphasia noted at home, here with signs of continued global encephalopathy likely exacerbated by sedation given for attempted MRI ( given 10mg IV haldol, 4mg IV ativan and 12.5mg IV phenergan in ER). Seen by [facility] neurology who recommended head/neck CTA which was deferred given ckd, and then brain MRI which was unobtainable due to agitation. Consider meningitis particularly given immune suppressed state but LP unobtainable as well. Started empiric tx for meningitis for now with ctx/ampicillin and vanco and ordered LP for am, plan for MRI in am as well if able. Eval for other source of infection pending including UA and chest XR ordered. # expressive/receptive aphasia and ? CVA: as above, w/u planned was not able to be obtained thus far, head CT w/o bleed, carotid US w/o stenosis, neurology consulted for am. Plan for brain MRI, echo in am. Asa ordered rectal for now, NPO # RA: with associated ILD and rather severe sxs in the past, followed by Dr. Vega and treated with rituximab and intermittent prednisone # dementia: reportedly mild and hx of encephalopathy in the past in the setting of infection, independent living and manages ADLs usually # HTN, uncontrolled: will allow for mild HTN for now given concerns for ischemic stroke but goal closer to sbp 170 which he has been holding for the most part # CKD: baseline creatinine of 1.6 which is where he is typically, needs CTA as above which was deferred given both agitation and elevated creatinine, will give IVF overnight in anticipation of CTA in am # IP status, high risk requiring step down unit monitoring, in addition to evaluation for admission an additional > 35 min critical care time spent in evaluation of labs/imaging and consultation with specialist and ER doctor Patient new to my care. Old records reviewed and summarized as above. Care plan reviewed with ER doctor as above.
[2019-02-15] MEDS: VANCOMYCIN 1.5 GM in NS 250 ML IV ONE ×2 (19:30→20:26)
[2019-02-15] MEDS: LORazepam 2 MG/ML INJ IVP PRN (20:12)
[2019-02-16] MEDS: AMPICILLIN SODIUM 2 GM in NS 100 ML IV SCH ×3 (01:01→13:37)
[2019-02-16] MEDS: LORazepam 2 MG/ML INJ IVP PRN (03:59)
[2019-02-16 05:25] LABS: PLATELET COUNT 136 10^3/uL (150-400)
[2019-02-16] MEDS: ASPIRIN RECTAL 300 MG SUPP PR SCH (08:42)
[2019-02-16] MEDS: NS 1,000 ML IV SCH (08:43)
[2019-02-16] MEDS ORDERED: ENOXAPARIN 30 MG/0.3 ML SYR SC SCH (09:00)
[2019-02-16] MEDS ORDERED: ASPIRIN RECTAL 300 MG SUPP PR SCH (09:00)
--- NOTE | 2019-02-16 09:54 | PDMN ---
Medical Necessity Medical necessity: [facility] Neurology: 89 yo presents w/ AMS w/ associated aphasia. Eval reveals metabolic encephalopathy poss r/t acute CVA. Some difficulties getting definitive dx tests given pt agitation. Consider meningitis w/ immunosuppression. Neuro consult, IV antibx to cover for meningitis. IVF. IP status as pt high risk requiring SDU monitoring and further dx testing. Meets [facility] IP criteria for [facility] w/ new onset severe neuro finding requiring IP care indicated by aphasia. Anticipate>2MN for monitoring/ tx of the above. Hx RA on chronic immune suppression, TIA, mild dementia.
--- NOTE | 2019-02-16 10:24 | NEUROPROG ---
Assessment: [id number] - Neurology Consult: - CC: Confusion - HPI: 02/16/19: Pt with PMHx of RA on chronic immunosuppression, non hodgkin's lymphoma , COPD, mild dementia, TIA, and prior encephalopathy in setting of infection developed acute confusion and speech disturbance on 02/15/19. Presented to [facility] ER where head CT and carotid U/S showed no acute changes. Pt given 10 mg IV haldol and 4 mg IV ativan to control sedation so he could have a brain MRI or spinal but he was too agitated in the ER so he was admitted for further evaluation. CTA head/neck not able to be obtained due to elevated creatinine. Pt placed on broad spectrum antibiotics to cover possibility of meningitis and rectal aspirin added to cover chance pt had a stroke. When agitation improves it is planned obtain a brain MRI wwo and spinal tap for further evaluation. Pts neurologic exam on 02/16/19 showed pt to be sedated. He could follow 1 step commands very intermittently but was not cooperative for exam. At this time my primary suspicion is acute confusional state in setting of dementia. He has a history of similar issues and there has been no clear focal neurologic deficits , fever, or headache to suggest alternative etiology. Pt has received Haldol and ativan which likely has worsened his sedation and confusion. At this time I would recommend holding off on brain MRI and spinal tap. When he becomes more awake I would proceed with brain MRI wwo to ensure no stroke, infection, or cancer affecting the brain. We can continue broad spectrum antibiotics until it becomes clear he does not have meningitis but suspicion for this diagnosis is low at this time. - PMHx: RA, non hodgkin's lymphoma, COPD, dementia, HLD, HTN, TIA, ILD, encephalopathy in past in setting of infection - Meds: atenolol, methotrexate, flonase, rituximab - SHx: former tobacco use FHx: son alive - ROS: Pt denied acute fever, total vision loss, active severe chest pain, respiratory failure, total body severe rash, total bowel/bladder incontinence, psychosis, active seizures, or active bleeding - O: VS reviewed General: Alert Eyes: Fundoscopic exam not able to visualize optic disks CV: Heart RRR, no murmur, no carotid bruit Lungs: Clear to auscultation bilaterally, no rhonchi or rales Neuro: - Mental: very intermittent in following 1 step commands (open your eyes) . Oriented x 0 . concentration appears decreased . speech fluency/comprehension cannot be tested due to mentation . memory not able to test . fund of knowledge not able to test - Cranial Nerves: . II: PERRL . III/IV/: Eyes conjugate . V/VII: blink reflex intact . VIII: hearing intact to conversation . IX/X: cannot be tested due to mentation . XI: cannot be tested due to mentation . XII: cannot be tested due to mentation - Motor: . Tone: normal tone in all 4 extremity . Strength: cannot be tested due to mentation, no clear focal weakness - Reflexes: B/L bic 2/4 - Sensory: withdraws all 4 extrem from pain - Coord: cannot be tested due to mentation - Gait: cannot be tested due to mentation - Labs: 02/16/19- LDL 115 - Rads: 02/15/19- Head CT: no acute intracranial abnormality (I personally visualized the images on 02/16/19) 02/15/19- Brain MRI wo: Advanced senescent features, with nondiagnostic assessment for acute CVA. 02/15/19- Carotid U/S: There is no sonographic evidence of a hemodynamically significant ICA stenosis. 2. Patent, antegrade vertebral arteries. - Assessment: 1. Acute Confusion on 02/15/19: Seems most likely to be acute confusional state ( sundowning) given advanced age, history of dementia, and lack of any fever/ headache/focal neurologic deficits. However, stroke or atypical meningitis is possible. Recommend giving him more time to clear mentation and avoiding any further haldol or ativan. We can reassess tomorrow to get brain MRI wwo. Reasonable to continue broad spectrum antibiotics until it is clear meningitis is excluded. - 2. Dementia 3. RA on chronic immunotherapy 4. History of non hodgkin's lymphoma 5. History of TIA 6. PMHx of encephalopathy in setting of infection - Plan: - Brain MRI wwo when pt able to tolerate procedure to evaluate for stroke, infection, or cancer - Hold off spinal tap at this time, it would require futher sedation to obtain which I feel would be riskier then waiting and letting his mentation improve - Avoid Haldol/ativan if possible to allow mentation to improve - Agree with aspirin to prevent stroke given he does have a prior reported TIA - Neurology will follow closely Objective: Vital Signs Temp Pulse Resp BP Pulse Ox 36.6 C 66 14 102/58 L 92 02/16/19 07:31 02/16/19 07:31 02/16/19 07:31 02/16/19 07:31 02/16/19 07:31 Laboratory Results 02/16/19 05:05 02/16/19 05:05 02/15/19 02/16/19 02/17/19 05:59 05:59 05:59 Intake Total 1420 Output Total 800 Balance 620 PT 12.4 SEC (12.0-15.0) 02/15/19 14:50 INR 0.96 (0.83-1.16) 02/15/19 14:50 Allergies/Adverse Reactions: tetanus immune globulin Allergy (Verified 02/15/19 15:32) HEADACHES,UNABLE TO GET UP FOR DAYS
[2019-02-16] MEDS ORDERED: FLUTICASONE NASAL 120 SPRAYS/16 GM MDI EACHNARE PRN (12:14)
--- NOTE | 2019-02-16 12:21 | HOSPPROG ---
Hospitalist Progress Note Assessment/Plan: #Acute Encephalopathy in a pt with hx of Dementia -etiology is likely metabolic -appears improving -MRI brain in a.m. (was too agitated this morning) -would avoid Haldol and other centrally acting medications #Question Meningitis -It would be unusual for a pt with dementia and his age to improve so quickly. He doesnt have any meningeal signs, afebrile, no leukocytosis. I don not suspect he has meningitis. Will stop abx now. I discussed with ID who has not been formally consulted #Agitation (improving) #Aphasia, hx of TIA -Etiology unclear -Neuro is following -Cont aspirin -MRI, TTE, CTA pending #RA: restart home meds #Hx of COPD and ILD. Stable #CKD, now at baseline FEN: -will have Speech clear once more awake. For now cont with IVF. I will decrease rate Lovenox for DVT proph Ok to transfer to Med Surg Subjective: more awake. denies neck pain, denies duarte, mehul visual problems. Able to speak. Objective: Vital Signs Temp Pulse Resp BP Pulse Ox 36.4 C 59 L 22 H 119/65 96 02/16/19 11:55 02/16/19 11:55 02/16/19 11:55 02/16/19 11:55 02/16/19 11:55 Laboratory Results 02/16/19 05:05 02/16/19 05:05 02/15/19 02/16/19 02/17/19 05:59 05:59 05:59 Intake Total 1420 Output Total 800 Balance 620 PT 12.4 SEC (12.0-15.0) 02/15/19 14:50 INR 0.96 (0.83-1.16) 02/15/19 14:50 - Time Spent With Patient Time Spent with Patient: greater than 35 minutes Time Spent with Patient: Greater than 35 minutes spent on this patients care, greater than 50% of time spent counseling, educating, and coordinating care regarding the above mentioned plan. - Physical Exam Constitutional: no apparent distress Eyes: PERRL Ears, Nose, Mouth, Throat: moist mucous membranes, hearing normal Cardiovascular: regular rate and rhythym Respiratory: no respiratory distress, no rales or rhonchi Gastrointestinal: normoactive bowel sounds, soft, non-tender abdomen Skin: warm Neurologic: other (no meningeal signs), No AAOx3 Psychiatric: interacting appropriately, not anxious, encephalopathic Lymph, Heme, Immunologic: No petechiae ICD10 Worksheet Patient Problems: Problems Problem Status Onset Altered mental status Acute CVA (cerebral vascular accident) Acute Acute encephalopathy Acute Fracture of femoral neck, left Acute Transient cerebral ischemia Acute
--- NOTE | 2019-02-16 14:53 | ASMTCMCOM ---
CM Note CM Note Notes: CM spoke with pt's son Héctor and with pt's RN. Pt lives in independent living at [place] and was admitted for AMS, expressive/receptive aphasia in the setting of dementia and CKD. CVA work up to happen once pt less agitated. PT and OT recommending discharge to SNF. Son Héctor asked that we send referrals to [facility], [facility] (Pt has been there in the past), [facility] and [facility]. Son to investigate facilities and let CM know their preference in the am. Referrals sent. CM to follow. D/C Plan: SNF Date Signed: 02/16/2019 02:52 PM Electronically Signed By:Coni Packer
[2019-02-16] MEDS: CALCIUM CARB W/VIT D 500 MG TAB PO SCH (19:51)
[2019-02-17] MEDS: NS 1,000 ML IV SCH (04:14)
[2019-02-17 04:50] LABS: PLATELET COUNT 158 10^3/uL (150-400)
--- NOTE | 2019-02-17 11:25 | NEUROPROG ---
Assessment: 1. Confusion, resolved 2. Mild Elevated creatinine, resolved 3. Rheumatoid arthritis on immunosuppression The patient's brain MRI did not show any acute findings. Carotid ultrasound did not show any hemodynamically significant stenosis. His confusion resolved. Creatinine as back within normal range. He may have been dehydrated causing confusion in the setting of advanced age and a underlying dementia. Discussed at length. No further recommendations now from Neurology. He can be on baby aspirin, if tolerated and not contraindicated, for vascular prophylaxis. He has no meningismus on exam. No fever since being in the hospital. No rash. No petechia. We will continue to follow up p.r.n. Please do not hesitate to call if there are any questions or changes in this patient's neurologic status. Subjective: Confusion is resolved , per nursing Objective: Vital Signs Temp Pulse Resp BP Pulse Ox 36.6 C 70 12 158/80 H 99 02/17/19 07:08 02/17/19 07:08 02/17/19 07:08 02/17/19 07:08 02/17/19 07:08 Microbiology 02/15/19 17:10 Blood Panel (PCR) - Final Blood No Organism Detected By Pcr Laboratory Results 02/17/19 04:15 02/17/19 04:15 02/16/19 02/17/19 02/18/19 05:59 05:59 05:59 Intake Total 1420 2093 0 Output Total 800 400 950 Balance 620 1693 -950 PT 12.4 SEC (12.0-15.0) 02/15/19 14:50 INR 0.96 (0.83-1.16) 02/15/19 14:50 Awake alert Fairly lucid No meningismus 35 total minutes floor time; over 50% counseling coordination of care. Allergies/Adverse Reactions: tetanus immune globulin Allergy (Verified 02/15/19 15:32) HEADACHES,UNABLE TO GET UP FOR DAYS
[2019-02-17] MEDS: ATENOLOL 50 MG TAB PO SCH (11:40)
[2019-02-17] MEDS: CALCIUM CARB W/VIT D 500 MG TAB PO SCH ×2 (11:41→20:22)
[2019-02-17] MEDS: ENOXAPARIN 40 MG/0.4 ML SYR SC SCH (11:41)
[2019-02-17] MEDS: ASPIRIN RECTAL 300 MG SUPP PR SCH (11:43)
[2019-02-17] MEDS: FOLIC ACID 1 MG TAB PO SCH (11:44)
[2019-02-17] MEDS: MULTIVITAMINS 1 EACH TAB PO SCH (11:45)
[2019-02-17] MEDS: PANTOPRAZOLE SODIUM 40 MG TAB PO SCH (11:45)
--- NOTE | 2019-02-17 13:33 | HOSPPROG ---
Hospitalist Progress Note Assessment/Plan: 89yo M with history of mild dementia, RA on chronic immunosuppressants, COPD/ILD , CKD here with acute onset of confusion. #Acute metabolic encephalopathy: Resolved per family. ? dehydration. - Initial MRI brain unremarkable but not great study - Now back to baseline. Neuro consulted, no further testing (no LP or repeat MRI) - Minimal clinical concern for meningitis - stopped abx and contact precautions #TUTU on CKD: Resolved with fluids. Back a baseline Cr 1.2. #+ GPC in blood cultures: Contaminant. #Right wrist pain: Mildly swollen. Patient reports related to trauma. Possible RA flare. Will monitor for now. #H/o TIA - Aspirin 81mg daily (started this admit) #RA: On weekly MTX. #H/o COPD/ILD: No flare. On room air. VTE ppx: LMWH Diet: Code: full Dispo: Remain inpatient, ok for floor. Therapy recommending SNF, patient and family agreeable, CM aware. Subjective: Feeling pretty well. Knows the date and where he is. No complaints other than right wrist pain, which has been bothering him for several days. Objective: Vital Signs Temp Pulse Resp BP Pulse Ox 36.6 C 88 16 142/76 H 96 02/17/19 07:08 02/17/19 11:38 02/17/19 11:38 02/17/19 11:38 02/17/19 11:38 Microbiology 02/15/19 17:10 Blood Panel (PCR) - Final Blood No Organism Detected By Pcr Laboratory Results 02/17/19 04:15 02/17/19 04:15 02/16/19 02/17/19 02/18/19 05:59 05:59 05:59 Intake Total 1420 2093 0 Output Total 800 400 950 Balance 620 1693 -950 PT 12.4 SEC (12.0-15.0) 02/15/19 14:50 INR 0.96 (0.83-1.16) 02/15/19 14:50 - Physical Exam Constitutional: no apparent distress, appears nourished, not in pain Eyes: PERRL, anicteric sclera, EOMI Ears, Nose, Mouth, Throat: moist mucous membranes, hearing normal, ears appear normal, no oral mucosal ulcers Cardiovascular: regular rate and rhythym, no murmur, rub, or gallop, No edema Respiratory: no respiratory distress, no rales or rhonchi, clear to auscultation Gastrointestinal: normoactive bowel sounds, soft, non-tender abdomen, no palpable masses Genitourinary: other (condom cath in place) Skin: other (abrasions on left ear) Musculoskeletal: other (changes consistent with chronic severe RA) Neurologic: AAOx3, CN II-XII Intact, No weakness, No numbness, No pronator drift Psychiatric: interacting appropriately ICD10 Worksheet Patient Problems: Problems Problem Status Onset Altered mental status Acute Chronic renal insufficiency Acute Combined receptive and expressive aphasia Acute Acute encephalopathy Acute Fracture of femoral neck, left Acute Transient cerebral ischemia Acute
--- NOTE | 2019-02-17 15:20 | ASMTCMCOM ---
CM Note CM Note Notes: Pt was denied to [facility], they have no beds available. CM spoke with pt's son Héctor who deffered to pt's daughter Barb ([phone]) who is touring facilities as we speak. CM made multiple attempts to reach her via phone without answer. Requested call back. Héctor reports Barb is coming to the hospital later this afternoon. CM submit updates via [employer] to [facility], [facility], and [facility]. Spoke with MD, plan for DC tomorrow. Still pending family choice and acceptance to a facility. CM to follow. Plan: SNF pending acceptance/family choice. Date Signed: 02/17/2019 03:19 PM Electronically Signed By:NORMA Cuevas
--- NOTE | 2019-02-18 08:20 | HOSPPROG ---
Hospitalist Progress Note Assessment/Plan: 89yo M with history of mild dementia, RA on chronic immunosuppressants, COPD/ILD , CKD here with acute onset of confusion. #Acute metabolic encephalopathy: Resolved. ? dehydration. - Initial MRI brain unremarkable but not great study - Now back to baseline. Neuro consulted, no further testing (no LP or repeat MRI) - Minimal clinical concern for meningitis - stopped abx and contact precautions #Right wrist pain: Consistent with RA flare - Start prednisone, will need short course #TUTU on CKD: Resolved with fluids. Back a baseline Cr 1.2-1.3. #Cough: Per pt, chronic issue. - MOTOR VEHICLE CLERK eval'd - aspiration precautions but regular diet/thin liquids - Patient declined VFSS #+ GPC in blood cultures: Contaminant. #H/o TIA - Aspirin 81mg daily (started this admit) #RA: On weekly MTX. #H/o COPD/ILD: No flare. On room air. VTE ppx: LMWH Code: full Dispo: Therapy recommending SNF, patient and family agreeable, CM aware. Plan to discharge this afternoon to SNF. Subjective: Continues to feel better. Cough noted intermittently (both with and without eating). Eval'd by MOTOR VEHICLE CLERK. R wrist really bothering him. Objective: Vital Signs Temp Pulse Resp BP Pulse Ox 37.0 C 89 16 146/87 H 95 02/18/19 04:02 02/18/19 04:02 02/18/19 04:02 02/18/19 04:02 02/18/19 04:02 Microbiology 02/15/19 17:10 Blood Panel (PCR) - Final Blood No Organism Detected By Pcr Laboratory Results 02/17/19 04:15 02/18/19 04:45 02/17/19 02/18/19 02/19/19 05:59 05:59 05:59 Intake Total 2093 700 Output Total 400 2450 Balance 1693 -1750 PT 12.4 SEC (12.0-15.0) 02/15/19 14:50 INR 0.96 (0.83-1.16) 02/15/19 14:50 - Physical Exam Constitutional: no apparent distress, appears nourished, not in pain, other ( elderly, frail) Eyes: PERRL, anicteric sclera, EOMI Ears, Nose, Mouth, Throat: moist mucous membranes, hearing normal, ears appear normal, no oral mucosal ulcers Cardiovascular: regular rate and rhythym, no murmur, rub, or gallop, No edema Respiratory: no respiratory distress, no rales or rhonchi, clear to auscultation Gastrointestinal: normoactive bowel sounds, soft, non-tender abdomen, no palpable masses Genitourinary: no bladder fullness, no bladder tenderness, no renal bruits Skin: other (right wrist erythema) Musculoskeletal: other (right wrist swelling) Neurologic: AAOx3 Psychiatric: interacting appropriately ICD10 Worksheet Patient Problems: Problems Problem Status Onset Altered mental status Acute Chronic renal insufficiency Acute Combined receptive and expressive aphasia Acute Acute encephalopathy Acute Fracture of femoral neck, left Acute Transient cerebral ischemia Acute
[2019-02-18] MEDS: PANTOPRAZOLE SODIUM 40 MG TAB PO SCH (09:06)
[2019-02-18] MEDS: MULTIVITAMINS 1 EACH TAB PO SCH (09:06)
[2019-02-18] MEDS: ASPIRIN 81 MG CHEWABLE TAB PO SCH (09:06)
[2019-02-18] MEDS: CALCIUM CARB W/VIT D 500 MG TAB PO SCH ×2 (09:06→20:10)
[2019-02-18] MEDS: ATENOLOL 50 MG TAB PO SCH (09:06)
[2019-02-18] MEDS: FOLIC ACID 1 MG TAB PO SCH (09:07)
[2019-02-18] MEDS: ENOXAPARIN 40 MG/0.4 ML SYR SC SCH (09:07)
--- NOTE | 2019-02-18 16:30 | ASMTCMCOM ---
CM Note CM Note Notes: Pt dghtr Dominga [phone] toured facilities and chooses [facility]. Pt not ready for d/c today. Pt likely ready tomorrow and [facility] transport is arranged for 11:00 tomorrow. CTL, pt dghtr Dominga and transport time entered in IM bills. D/c plan of care: [facility] Date Signed: 02/18/2019 04:29 PM Electronically Signed By:MELANI Marina
[2019-02-18] MEDS: predniSONE 5 MG TAB PO SCH (17:50)
[2019-02-19] MEDS ORDERED: BISACODYL 10 MG SUPP PR PRN (02:18)
[2019-02-19] MEDS ORDERED: MAGNESIUM HYDROXIDE 30 ML UDCUP PO PRN (02:18)
[2019-02-19] MEDS ORDERED: POLYETHYLENE GLYCOL 3350 17 GM PKT PO PRN (02:18)
[2019-02-19] MEDS ORDERED: LACTULOSE 20 GM/30 ML UDCUP PO PRN (02:18)
[2019-02-19 07:06] VITALS: BP 163/74
[2019-02-19] MEDS ORDERED: SENNOSIDES/DOCUSATE SODIUM TAB PO SCH (09:00)
--- NOTE | 2019-02-19 09:32 | PDIAF ---
- Diagnosis Code Status: Full Code - Medication Management Discharge Medications: electronically signed and located in the Home Medication List. PICC Care - Routine: N/A - Orders Services needed: Physical Therapy, Occupational Therapy, Speech Language Pathologist Isolation Type: None Diet Texture: Regular Texture Diet, Thin Liquids, Meds Whole in Puree Browne: Not applicable Additional Instructions: We recommend starting aspirin 81mg daily. You should continue taking prednisone 5mg daily until the pain and inflammation in your right wrist subsides. You can call your market specialist (Dr Vega) if you have additional questions or concerns. Take meds whole in applesauce, no straws, small sips of fluids at a time, small bites of food at a time. Head of bed elevated while eating/drinking. Use a walker, weight bearing as tolerated - Follow Up Care Current Providers and Referrals: Patient,NotPresent [Unknown] - As per Instructions
--- NOTE | 2019-02-19 09:32 | PDDCSUM ---
Discharge Summary Discharge Summary: Date of Admission: 02/15/2019 Date of Discharge: 02/19/2019 Consultants: neurology Studies: head CT, brain MRI, carotid ultrasound Discharge Diagnoses: 1. Acute metabolic encephalopathy, resolved 2. Right wrist inflammation c/w RA flare 3. TUTU on CKD, resolved (baseline Cr 1.2-1.3) 4. + GPC in blood cultures - contaminant 5. H/o TIA 6. Rheumatoid arthritis on chronic MTX and rituximab 7. Non-hodgkin's lymphoma (most likely resulted from long-term TNF-inhibitor therapy, now stopped) 8. Basal cell cancer of left ear (followed by watch caser) 9. H/o COPD/ILD (mild, on room air) 10. Mild cognitive impairment Brief Hospital Course: 89yo M with history of mild cognitive impairment, TIA, RA on chronic immunosuppressants, CKD presents from [facility] with acute onset of confusion and aphasia. A stroke alert was called. Non-contrasted CT of his head was negative for hemorrhage and brain MRI was negative for CVA. Carotid ultrasound did not show any hemodynamically significant stenosis. Neurology was consulted who did not feel that this was consistent with a stroke , TIA, or meningoencephalitis but rather episodic confusion due to dehydration in the setting of advanced age and underlying dementia. His encephalopathy resolved and he was improving back to baseline at time of discharge. He was started on a baby aspirin due to his history of TIAs in the past. His TUTU resolved with IV fluids. He has some difficulty staying hydrated due to his deformities related to his RA. His right wrist was found to be quite inflammed during this hospitalization. He did have a fall where he had some trauma to his wrist prior to coming in. X- rays were negative for fracture. This was consistent with a rheumatoid flare and he was started on prednisone 5mg daily. Medications: Please refer to EMR for complete list. Changes this admission include 1. Addition of aspirin 81mg daily 2. Prednisone 5mg daily as needed for RA flare Follow Up Plan: 1. PCP visit once out of SNF 2. Extractor Machine Operator visit next Sunday 3. Continue following with auto top mechanic Physical Exam: Vitals reviewed, afebrile. Alert and oriented, rrr, lungs clear, abdomen soft and nt, no leg edema, abrasions on left ear.
[2019-02-19] MEDS: FOLIC ACID 1 MG TAB PO SCH (09:48)
[2019-02-19] MEDS: ASPIRIN 81 MG CHEWABLE TAB PO SCH (09:48)
[2019-02-19] MEDS: CALCIUM CARB W/VIT D 500 MG TAB PO SCH (09:48)
[2019-02-19] MEDS: ENOXAPARIN 40 MG/0.4 ML SYR SC SCH (09:48)
[2019-02-19] MEDS: predniSONE 5 MG TAB PO SCH (09:48)
[2019-02-19] MEDS: PANTOPRAZOLE SODIUM 40 MG TAB PO SCH (09:49)
[2019-02-19] MEDS: MULTIVITAMINS 1 EACH TAB PO SCH (09:49)
[2019-02-19] MEDS: ATENOLOL 50 MG TAB PO SCH (09:49)
--- NOTE | 2019-02-19 11:25 | ASMTLACE ---
LACE Length of stay for Answers: 4-6 days current admission Acuity / Level of Answers: Yes Care: Did the patient have an inpatient admission? Comorbidities - select Answers: Cerebrovascular disease all that apply (CVA, TIA, aneurysms, vasc ular dementia) Chronic pulmonary disease Dementia Mild liver or renal disease Other Notes: HTN; HLD # of Emergency department Answers: 1-2 visits in the last 6 months Score: 17 Date Signed: 02/19/2019 11:23 AM Electronically Signed By:MELANI Marina
--- NOTE | 2019-02-19 11:26 | ASMTCMCOM ---
CM Note CM Note Notes: Pt medically stable for d/c to [facility], orders sent in Allscripts. RN Maryam to call report. The pre-arranged transport for 11:00 arrived. Date Signed: 02/19/2019 11:25 AM Electronically Signed By:MELANI Marina
--- NOTE | 2019-02-19 12:09 | ASDISCHSUM ---
Discharge Information Plan Status:SNF Medically Cleared to Leave: Discharge Date:02/19/2019 11:10 AM CM D/C Disposition: ADT D/C Disposition:Fpc Facility Projected Discharge Date:02/18/2019 11:00 AM Transportation at D/C: Discharge Delay Reason: Follow-Up Date:02/18/2019 11:00 AM Discharge Slot: Final Diagnosis: Placement Information Referral Type:*Correction/SNF Referral ID:[id number] Provider Name:Bushra Boyd Address 1:[address] [place] Phone Number: Address 2: Fax Number: Sandy:[facility] Selection Factors: State:[place] Patient Contact Information Contact Name:KIRAN Relationship:Son Address:[address] City:[place] Alternate Phone: [facility] Code:[place] [address] Email: Financial Information Financial Class:Medicare Primary Plan Desc:MEDICARE INPATIENT Primary Plan Number:[id number] Secondary Plan Desc:[facility] Secondary Plan Number:[id number] Assessment Information [facility] CM Progress Note CM Note CM Note Notes: CM spoke with pt's son Héctor and with pt's RN. Pt lives in independent living at [facility] and was admitted for AMS, expressive/receptive aphasia in the setting of dementia and CKD. CVA work up to happen once pt less agitated. PT and OT recommending discharge to SNF. Augie Anaya asked that we send referrals to [facility], [facility] (Pt has been there in the past), [facility] and [facility]. Son to investigate facilities and let CM know their preference in the am. Referrals sent. CM to follow. D/C Plan: SNF Date Signed: 02/16/2019 02:52 PM Electronically Signed By:Coni Packer LACE NAHOMY Length of stay for Answers: 4-6 days current admission Acuity / Level of Answers: Yes Care: Did the patient have an inpatient admission? Comorbidities - select Answers: Cerebrovascular disease all that apply (CVA, TIA, aneurysms, vasc ular dementia) Chronic pulmonary disease Dementia Mild liver or renal disease Other Notes: HTN; HLD # of Emergency department Answers: 1-2 visits in the last 6 months Score: 17 Date Signed: 02/19/2019 11:23 AM Electronically Signed By:MELANI Marina [facility] Progress Note CM Note CM Note Notes: Pt was denied to [facility], they have no beds available. CM spoke with pt's son Héctor who deffered to pt's daughter Barb ([phone]) who is touring facilities as we speak. CM made multiple attempts to reach her via phone without answer. Requested call back. Héctor reports Barb is coming to the hospital later this afternoon. CM submit updates via [facility] to [facility], [facility], and [facility]. Spoke with MD, plan for DC tomorrow. Still pending family choice and acceptance to a facility. CM to follow. Plan: SNF pending acceptance/family choice. Date Signed: 02/17/2019 03:19 PM Electronically Signed By:NORMA Cuevas [facility] Progress Note CM Note CM Note Notes: Pt dghtr Dominga [phone] toured facilities and chooses [facility]. Pt not ready for d/c today. Pt likely ready tomorrow and [facility] transport is arranged for 11:00 tomorrow. CTL, pt dghtr Dominga and transport time entered in IM bills. D/c plan of care: [facility] Date Signed: 02/18/2019 04:29 PM Electronically Signed By:MELANI Marina [facility] CM Progress Note CM Note CM Note Notes: Pt medically stable for d/c to [facility], orders sent in [facility]. JAMES Francisco to call report. The pre-arranged transport for 11:00 arrived. Date Signed: 02/19/2019 11:25 AM Electronically Signed By:MELANI Marina Intervention Information Intervention Type:*IM-Signed Date of Service:02/19/2019 10:26 AM Patient Type:Inpatient Staff Member:Veena Nolen Hours: Discipline: Severity: Comment:
[2019-02-23] MEDS ORDERED: METHOTREXATE 2.5 MG TAB PO SCH (09:00)
== END 2019-02-19 11:10 | DRG 640 ==
LOC: EDUNIT# → EEVIPCON 16:00 → F2N 17:56 → F3N 02-17 13:20
PROVIDERS: ADMIT Internal Medicine; ATTEND Internal Medicine
DX: E86.0 Dehydration (principal); G93.41 Metabolic encephalopathy; R47.01 Aphasia; N17.9 Acute kidney failure, unspecified; N18.9 Chronic kidney disease, unspecified; F03.90 Unspecified dementia, unspecified severity, without behavioral disturbance, psychotic disturbance, mood disturbance, and anxiety; M06.9 Rheumatoid arthritis, unspecified; E78.5 Hyperlipidemia, unspecified; I12.9 Hypertensive chronic kidney disease with stage 1 through stage 4 chronic kidney disease, or unspecified chronic kidney disease; J44.9 Chronic obstructive pulmonary disease, unspecified; R05 Cough; Z85.72 Personal history of non-Hodgkin lymphomas; Z86.73 Personal history of transient ischemic attack (TIA), and cerebral infarction without residual deficits; Z79.899 Other long term (current) drug therapy
CPT/HCPCS: 70551-PN; 82435-PO; 82565-PO; 82947-PO; 84132-PO; 84295-PO; 84484-ER; 84520-PO; 85014-ER; 92526-GN; 92610-GN; 96374; 97116-GP; 97162-GP; 97166-GO; 97530-GP; 97535-GO; J0290; J0696; J1100; J1630; J1650; J2060; J2405; J2550; J3370; J7512; Q9967